=== PATIENT | female | born 1965 | race Two or more races ===

== ENCOUNTER 2025-06-13 13:44 | Emergency (ER) | payer OTHER ==
[~2025-06-13] VITALS: Ht 162.6 cm; Wt 78.9 kg
[2025-06-13 15:37] VITALS: BP 143/90; O2SAT 100
[2025-06-13] MEDS ORDERED: BUTALBIT-ACETA1 EACH PO (15:43)
[2025-06-13] MEDS ORDERED: ACETAMINOPHEN 325 MG TABLET PO ONE (16:00)
[2025-06-13] MEDS ORDERED: AZITHROMYCIN 500 MG TABLET PO ONE ×2 (16:00→18:55)
[2025-06-13] MEDS ORDERED: GUAIFENESIN 600 MG TABLET.SA PO ONE (16:00)
[2025-06-13] MEDS ORDERED: ACETAMINOPHEN 500 MG GEL..CAP PO ONE (18:55)
[2025-06-13 19:46] LABS: BASO % 0.7 % (0.1-1.2); EOS # 0.15 (0.04-0.54); EOS % 2.8 % (0.7-7.0); LYMPH # 2.45 (1.18-3.74); LYMPH % 45.5 % (19.3-53.1); MEAN PLATELET VOLUME 9.10 fl (9.4-12.4); MONO # 0.35 (0.24-0.82); MONO % 6.5 % (4.7-12.5); NEUT # 2.37 (1.56-6.13); NEUT % 44.1 % (34.0-71.1); RED CELL DISTRIBUTION WIDTH 12.8 % (11.6-14.4)
[2025-06-13 20:05] LABS: COVID-19 AG NEGATIVE (NEGATIVE)
[2025-06-13 20:33] LABS: ALT/SGPT 32.0 U/L (12-78); AST/SGOT 19.0 U/L (15-37); BILIRUBIN TOTAL 0.34 mg/dL (0.3-1.2); BUN CREA RATIO 19.0 (7.0-25.0); CREATININE SERUM 0.89 mg/dL (0.55-1.02); GFR 64.7; GLOBULINA 4.1 G/DL (2.4-3.5); GLUCOSE FASTING 167.0 mg/dL (65-100); OSMOLALITY SERUM 288.0 MOSM/KG (275-295)
== END 2025-06-13 23:09 | disposition home or self-care (01) ==
LOC: ER 13:45
PROVIDERS: General Practice
DX: R51.9 Headache, unspecified (principal); J00 Acute nasopharyngitis [common cold]; R05.8 Other specified cough; R50.9 Fever, unspecified; Z20.822 Contact with and (suspected) exposure to COVID-19; Z88.0 Allergy status to penicillin